=== PATIENT | male | born 1955 | race Caucasian/White ===

== ENCOUNTER 2016-07-29 14:49 | Outpatient (CLI) | payer OTHER ==
[~2016-07-29] VITALS: Ht 185.4 cm; Wt 97.3 kg
[2016-07-29 14:32] VITALS: BP 127/76; PULSE 81; RESP 18; Ht 185.4 cm; Wt 97.3 kg
[2016-07-29] MEDS ORDERED: METF-388 PO (14:53)
[2016-07-29] MEDS ORDERED: RANI300T3 PO (14:53)
[2016-07-29] MEDS ORDERED: HYDR-906 PO (14:53)
[2016-07-29] MEDS ORDERED: TRAM-40 PO (14:53)
--- NOTE | 2016-07-29 14:57 | PN ---
Date/Time of Note Date/Time of Note DATE: 07/29/16 TIME: 14:56 Outpatient Progress Note Chief Complaint Confusion/diabetes/PUD/psoriasis HPI Confusion/patient was recently admitted with confusion, patient awake alert and not confused, complains of minimal headache, patient had LP, Diabetes/no polydipsia. Hyperglycemia, gastroparesis, and abdominal distention, no impaired vision, PUD/no nausea or vomiting, or hematemesis or melena, Psoriasis/patient has psoriasis both upper and lower extremities, patient was getting a therapy, patient not getting therapy at present, complain of itching, Review of Systems Const: No Fever, no chills, no Wt. loss, no Fatigue, normal appetite, no diaphoresis. Eyes: No pain, no discharge, no redness, no visual change, no foreign body. ENT: No pain, no bleeding, no congestion, no sore throat, no dysphagia, no discharge or rhinitis. Lymph: No adenopathy, no tender nodes, no lymphedema. Resp: No SOB, no cough, no sputum, no wheezing, no chest pain. CV: No chest pain, no palpitaions, no HOOVER, no PND, no edema. GI: Normal appetite, no pain, no nausea, no vomiting, no diarrhea, no blood, no constipation. : No frequency, no urgency, no dysuria, no hematuria, no flank pain, no discharge, no bleeding. Musc: No bone/joint pain, no back pain, no neck pain, no knee pain, no restricted ROM. Skin: ` Psoriasis rash lower axillary more than upper,, no skin lesions, no erythema, no laceration, no bruising, no pruritus. Neuro: Mild frontal WEAVER, no dizziness, no syncope, no seizure, no focal-weakness. Endo: No polyuria, no polydypsia, no dry-skin, no temp-intolerance. Psych: No hallucinations, no depression, no anxiety, no suicidal ideation. Ext: No edema, no pain, no ulcer, no weakness. Physical Exam Vital Signs Date Time Temp Pulse Resp B/P Pulse Ox O2 Delivery O2 Flow Rate FiO2 07/29/16 14:32 98.1 81 18 127/76 93 Room Air General Appearance: A 61 year-old male who appears well-developed, well- nourished, in no acute distress. HEENT: Head normocephalic, atraumatic. Pupils equal, round, reactive to light and accommodate. Sclerae are no jaundice. Nasal turbinates pink without erythema or nasal discharge. Mucous membranes pink and moist without lesions. Oropharynx clear without any exudate or discharge. NECK: Supple. Trachea midline, No thyromegaly, No cervical lymphadenopathy, No mass, No carotid bruits, No JVD, Carotid pulses 2+ bilaterally. PULMONARY: Clear to auscultaion bilaterally, No retractions, Chest expansion symmetric bilaterally, no rales, no ronchi, no dulness on percussion. CARDIAC: Normal SI and S2, Regular rate and rythm, no murmur, gallop, or rub. GASTROINTESTINAL: Abdomen is soft, non-tender, Non Rigid, No distention, Positive bowel sounds x4 quadrants, Liver normal. SKIN: Warm, dry, psoriasis rash nor axillary more than upper,, no bruise, no echmosis. EXTREMITIES: Bilateral lower extremities normal, no edema, no phlabitus, pulse palpable, no contracture. MUSCULOSKELETAL: Spine Normal, Non-tender, Normal range of motion, No swelling, no deformity, no clubbing, or cyanosis, the patient has no edema to bilateral lower extremities, dorsalis pedis pulses palpable bilaterally. NEUROLOGIC: The patient is awake, alert, oriented, responding to yes/no questions appropriately, moving all extremities, cranial nerve intact, normal strenght, normal power, normal coordination, normal gait. Allergies Coded Allergies: No Known Drug Allergies (Verified Allergy, Unknown, 07/29/16) PMH On the mental status/diabetes/PUD/psoriasis Social Hx No smoking or drinking, no drugs, Family Hx Noncontributory Assessment/Plan Impression Confusion improved/diabetes/PUD/psoriasis Plan Continue all medication, discussed about diabetes, and hypoglycemia, monitor blood sugar closely, monitor mental status, fall precaution, discussed with the family, education done, Patient encouraged to follow with the primary care physician, We will hold off therapy for psoriasis at present, once patient is stable will resume, discussed with the patient, in [place]ian Patient to bring blood sugar reading, Franco to primary care physician, Medications Home Meds Reported Medications Tramadol Hcl* (Ultram*) 50 Mg Tablet, 50 MG PO Q8 for PAIN LEVEL 1-5, TAB 07/29/16 Ranitidine Hcl* (Zantac*) 300 Mg Tablet, 300 MG PO HS, #30 TAB 07/29/16 Metformin Hcl* (Metformin Hcl*) 1,000 Mg Tablet, 1000 MG PO WITH BREAKFAST DINNE , #60 TAB 07/29/16 Hydrocodone/Acetaminophen ([place] 5-325 Tablet) 1 Each Tablet, 1 EACH PO Q6 for PAIN LEVEL 6-10, TAB 07/29/16 CHINO ORTIZ MD Jul 29, 2016 14:57
== END 2016-07-29 17:00 | disposition home or self-care (01) ==
LOC: DCC 14:49
PROVIDERS: ATTEND Internal Medicine
DX: R41.0 Disorientation, unspecified (principal); E11.9 Type 2 diabetes mellitus without complications; K27.9 Peptic ulcer, site unspecified, unspecified as acute or chronic, without hemorrhage or perforation; L40.9 Psoriasis, unspecified
CPT/HCPCS: G0463

== ENCOUNTER 2016-08-12 14:56 | Outpatient (CLI) | payer OTHER ==
[~2016-08-12] VITALS: Ht 185.4 cm; Wt 94.5 kg
[~2016-08-12 14:56] MED LIST: HYDR-906 PO; METF-388 PO; RANI300T3 PO; TRAM-40 PO
--- NOTE | 2016-08-12 15:01 | PN ---
Date/Time of Note Date/Time of Note DATE: 08/12/16 TIME: 15:01 Outpatient Progress Note Chief Complaint Psoriasis/diabetes/PUD/ HPI Psoriasis/No fever or chill, no bleeding or discharge,has severe psoriasis, patient has severe redness, itching, patient not taking any medication, Diabetes/no polydipsia polyuria or hypoglycemia, gastroparesis, does not know blood sugar today, PUD/no nausea vomiting, hematemesis melena, Review of Systems Const: No Fever, no chills, no Wt. loss, no Fatigue, normal appetite, no diaphoresis. Eyes: No pain, no discharge, no redness, no visual change, no foreign body. ENT: No pain, no bleeding, no congestion, no sore throat, no dysphagia, no discharge or rhinitis. Lymph: No adenopathy, no tender nodes, no lymphedema. Resp: No SOB, no cough, no sputum, no wheezing, no chest pain. CV: No chest pain, no palpitaions, no HOOVER, no PND, no edema. GI: Normal appetite, no pain, no nausea, no vomiting, no diarrhea, no blood, no constipation. : No frequency, no urgency, no dysuria, no hematuria, no flank pain, no discharge, no bleeding. Musc: No bone/joint pain, no back pain, no neck pain, no knee pain, no restricted ROM. Skin: Psoriatic rash generalized,, minimal erythema, no laceration, no bruising , moderately severe pruritus. Secondary to psoriasis, Neuro: No WEAVER, no dizziness, no syncope, no seizure, no focal-weakness. Endo: No polyuria, no polydypsia, no dry-skin, no temp-intolerance. Psych: No hallucinations, no depression, no anxiety, no suicidal ideation. Ext: No edema, no pain, no ulcer, no weakness. Physical Exam Vital Signs Date Time Temp Pulse Resp B/P Pulse Ox O2 Delivery O2 Flow Rate FiO2 08/12/16 15:08 98.0 88 16 138/84 94 Room Air General Appearance: A [61 year-old [male who appears well-developed, well- nourished, in no acute distress. HEENT: Head normocephalic, atraumatic. Pupils equal, round, reactive to light and accommodate. Sclerae are no jaundice. Nasal turbinates pink without erythema or nasal discharge. Mucous membranes pink and moist without lesions. Oropharynx clear without any exudate or discharge. NECK: Supple. Trachea midline, No thyromegaly, No cervical lymphadenopathy, No mass, No carotid bruits, No JVD, Carotid pulses 2+ bilaterally. PULMONARY: Clear to auscultaion bilaterally, No retractions, Chest expansion symmetric bilaterally, no rales, no ronchi, no dulness on percussion. CARDIAC: Normal SI and S2, Regular rate and rythm, no murmur, gallop, or rub. GASTROINTESTINAL: Abdomen is soft, non-tender, Non Rigid, No distention, Positive bowel sounds x4 quadrants, Liver normal. SKIN: Warm, dry, sclerotic rash mild to moderate redness, severe itching,, no bruise, no echmosis. EXTREMITIES: Bilateral lower extremities normal, no edema, no phlabitus, pulse palpable, no contracture. MUSCULOSKELETAL: Spine Normal, Non-tender, Normal range of motion, No swelling, no deformity, no clubbing, or cyanosis, the patient has no edema to bilateral lower extremities, dorsalis pedis pulses palpable bilaterally. NEUROLOGIC: The patient is awake, alert, oriented, responding to yes/no questions appropriately, moving all extremities, cranial nerve intact, normal strenght, normal power, normal coordination, normal gait. Allergies Coded Allergies: No Known Drug Allergies (Verified Allergy, Unknown, 07/29/16) PMH No change Social Hx No change Family Hx No change Assessment/Plan Impression Psoriatic rash/diabetes/PUD Plan Patient was admitted with altered mental status, patient awake alert, feeling much better, Patient has severe psoriatic rash, severe itching, skin rate, no bleeding discharge, patient has no cream, Patient will be given clobetasol, 60 g apply twice a day, Patient to follow with the primary care physician, Will need treatment for psoriasis, primary care physician to arrange it, Medications Home Meds Reported Medications Tramadol Hcl* (Ultram*) 50 Mg Tablet, 50 MG PO Q8 for PAIN LEVEL 1-5, TAB 07/29/16 Ranitidine Hcl* (Zantac*) 300 Mg Tablet, 300 MG PO HS, #30 TAB 07/29/16 Metformin Hcl* (Metformin Hcl*) 1,000 Mg Tablet, 1000 MG PO WITH BREAKFAST DINNE , #60 TAB 07/29/16 Discontinued Reported Medications Hydrocodone/Acetaminophen ([place] 5-325 Tablet) 1 Each Tablet, 1 EACH PO Q6 for PAIN LEVEL 6-10, TAB 07/29/16 CHINO ORTIZ MD Aug 12, 2016 15:01
[2016-08-12 15:08] VITALS: BP 138/84; PULSE 88; RESP 16; Ht 185.4 cm; Wt 94.5 kg
== END 2016-08-12 16:46 | disposition home or self-care (01) ==
LOC: DCC 14:56
PROVIDERS: ATTEND Internal Medicine
DX: R21 Rash and other nonspecific skin eruption (principal); E11.9 Type 2 diabetes mellitus without complications; K27.9 Peptic ulcer, site unspecified, unspecified as acute or chronic, without hemorrhage or perforation
CPT/HCPCS: G0463